=== PATIENT | female | born 1950 | race Caucasian/White ===

== ENCOUNTER 2017-05-24 17:43 | Emergency (ER) | payer SELFPAY ==
[~2017-05-24] VITALS: Ht 152.4 cm; Wt 46.3 kg
[2017-05-24 18:00] VITALS: BP 144/78
== END 2017-05-24 21:25 | disposition left against medical advice (07) ==
LOC: ER 17:43
DX: M25.532 Pain in left wrist (principal); Z53.21 Procedure and treatment not carried out due to patient leaving prior to being seen by health care provider; V03.90XA Pedestrian on foot injured in collision with car, pick-up truck or van, unspecified whether traffic or nontraffic accident, initial encounter; Y93.89 Activity, other specified; Y92.89 Other specified places as the place of occurrence of the external cause; Y99.8 Other external cause status
CPT/HCPCS: 73100